=== PATIENT | female | born 1980 | race Caucasian/White ===

== ENCOUNTER 2023-03-17 13:10 | Outpatient (AMB) | payer BC, SELFPAY ==
--- NOTE | 2023-03-17 13:12 | MHC.OFFWIV ---
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 She states that her daughter and nehumphrey had similar symptoms 1st, and were COVID negative as well as negative for strep throat. There symptoms have resolved, however she states that her symptoms have lasted a little longer, and she is worried about having strep throat. She has negative for COVID on rapid home test. She denies fever or chills, difficulty eating, headache or dizziness, nausea vomiting or diarrhea, weakness, myalgias, shortness of breath, cough or chest pain, or other significant associated symptoms. No significant past medical history upon review with patient. [facility] Social History Patient Tobacco Use Status: Never used Tobacco Physical Exam Vital Signs: Last Vital Signs Temp 98.7 F 03/17/23 13:15 Pulse 80 03/17/23 13:15 BP 130/80 03/17/23 13:15 Pulse Ox 99 03/17/23 13:15 Oxygen Delivery Method Room Air 03/17/23 13:15 Const General: cooperative, healthy appearing, comfortable, no acute distress, alert, awake, Physically active and well groomed; No anxious, diaphoretic, ill appearing, intoxicated appearing, poor hygiene or tired appearing Nutritional Appearance: average body habitus Orientation/consciousness: oriented to person Limitations: no limitations HEENT Head: Yes normal to inspection, Yes normocephalic and Yes atraumatic Ears: hearing grossly normal bilaterally, external ears normal, TM's normal bilaterally and EAC's normal General nose exam: Normal external nose present, Normal nares present, No nasal polyps present, Normal nasal mucous membranes and turbinates present and Normal septum present Face and sinus: Yes normal facial exam, Yes sinuses nontender and Yes face symmetric Mouth: Normal oral and palatal mucosa present, lip normal, tongue normal, moist mucous membranes, no audible dysphonia, no drooling, no trismus and No restricted motion Throat: Yes abnormal tonsil (mildly erythematous bilaterally), No peritonsillar mass, Yes postnasal drainage (Clear), No uvular edema, No cobblestoning and Yes other (Weight exudate bilaterally) Eyes General: appearance normal, both eyes and all related structures Neck Neck: Yes normal visual inspection, Yes full ROM, Yes no lymphadenopathy (Mild submandibular lymphadenopathy, no anterior cervical), Yes no meningeal signs, Yes trachea midline, Yes supple and No anterior neck swelling Resp Effort & Inspection: normal respiratory effort Cardio Palpation: normal PMI Rate: regular rate Rhythm: regular rhythm Heart sounds: S1 normal heart sound present and S2 normal heart sound present Skin Other: Good color, warm and dry Neuro General: oriented to person and no meningeal signs Psych Appearance: grossly normal Mental Status: mental status grossly normal Speech and movement: Normal speech and movement present Affect: normal affect Attitude: cooperative Thought process: Normal thought process present Insight: Good insight present (Psych) Judgement: Good judgement present (Psych) Results AMB Rapid Strep AMB Rapid Strep Negative Last Edit by NATALIA Claros on 03/17/23 13:30 Results Reviewed Results Reviewed: Laboratory Last Values Strep Scn Rapid Clinic Negative 03/17/23 13:29 Assessment & Plan Assessment & Plan (1) Upper respiratory infection: Code(s): J06.9 - Acute upper respiratory infection, unspecified Plan: Patient tested negative for with rapid strep testing, similar to the family members that exposed her. I did swab for throat culture today, however her presentation is consistent with likely viral upper respiratory infection. We discussed continuing supportive care, and she knows to follow up if symptoms worsen prior to results available. Orders: Orders Throat Culture 03/17/23 J02.9 - Acute pharyngitis, unspecified AMB Rapid Strep Screen 03/17/23 Z13.9 - Encounter for screening, unspecified Coding Level of Care Code New Pt Level 4 (44465) Diagnoses Upper respiratory infection J06.9
[2023-03-17 13:15] VITALS: BP 130/80; PULSE 80; TEMP 37.1; O2SAT 99
== END 2023-03-17 14:00 | disposition home or self-care (01) ==
PROVIDERS: PCP Internal Medicine; Visit Provider Physician Assistant Medical
DX: Z13.9 Encounter for screening, unspecified (principal)
CPT/HCPCS: 87880; 99204

== ENCOUNTER 2023-03-17 20:00 | Outpatient (REF) | payer BC, SELFPAY | END 2023-03-17 20:01 | disposition home or self-care (01) | LOC: HO.HMGCLNP 20:00 | PROVIDERS: Visit Provider Physician Assistant Medical | DX: J02.9 Acute pharyngitis, unspecified (principal) | CPT/HCPCS: 87070 ==